=== PATIENT | male | born 1990 | race African-American/Black ===

== ENCOUNTER 2017-10-04 03:04 | Emergency (ER) | payer MEDICAID ==
[~2017-10-04] VITALS: Ht 170.2 cm; Wt 75.0 kg
[2017-10-04] MEDS ORDERED: HYDR-4031 PO (03:29)
[2017-10-04 06:22] VITALS: BP 124/73
== END 2017-10-04 06:45 | disposition home or self-care (01) ==
LOC: EMS 03:05
DX: M79.671 Pain in right foot (principal); M79.672 Pain in left foot; F41.9 Anxiety disorder, unspecified; F31.9 Bipolar disorder, unspecified; F17.210 Nicotine dependence, cigarettes, uncomplicated; F12.90 Cannabis use, unspecified, uncomplicated
CPT/HCPCS: 99284